=== PATIENT | female | born 1975 | race American Indian/Alaskan Native ===

== ENCOUNTER 2016-11-29 23:49 | Emergency (ER) | payer OTHER ==
[2016-11-30] MEDS ORDERED: NACL 0.9% 1000 ML 1,000 ML IV ONE (01:15)
[2016-11-30] MEDS ORDERED: MORPHINE IV ONE (01:15)
--- NOTE | 2016-11-30 01:35 | Emergency Department Report ---
HPI - General Chief Complaint: Dizziness Time Seen by Provider: 11/30/16 00:59 - HPI HPI: 41-year-old -[place] female presents to the emergency department from home with complaint of a headache that has been going on since 6 PM this evening. It is bitemporal and behind the eyes. She says it is 10 out of 10 in intensity and a throbbing sensation. She equates it to a migraine but does not have any history of migraines or recurrent headaches. She denies any tobacco abuse, illicit drug use or alcohol abuse. She tried some Aleve for her discomfort without any relief. She has [employer] insurance but cannot remember the name of her primary care doctor. No recent travel or sick contacts at home. The headache is associated with some dizziness as if she is going to pass out and some intermittent blurry vision. She denies any numbness, slurred speech, chest pain, shortness of breath, fever, nausea or vomiting. No recent travel or sick contacts at home. She is concerned as she has a father or grandfather who passed from a ruptured brain aneurysm. ED Past Medical Hx - Past Medical History Previous Medical History?: No - Surgical History Past Surgical History?: Yes Additional Surgical History: c-sect - Social History Smoking Status: Never Smoker Substance Use Type: None - Medications Home Medications: Home Medications Medication Instructions Recorded Confirmed Last Taken Type No Known Home Medications [No 11/30/16 11/30/16 Unknown History Reported Home Medications] ED Review of Systems ROS: Stated complaint: ELEVATED BLOOD PRESSURE Other details as noted in HPI Comment: All other systems reviewed and negative Constitutional: denies: chills, fever Eyes: denies: eye pain, eye discharge ENT: denies: ear pain, throat pain Respiratory: denies: cough, shortness of breath, wheezing Cardiovascular: denies: chest pain, palpitations Gastrointestinal: denies: abdominal pain, nausea, diarrhea Genitourinary: denies: urgency, dysuria, discharge Musculoskeletal: denies: back pain, joint swelling, arthralgia Skin: denies: rash, lesions Neurological: headache, other (dizziness). denies: weakness, numbness, paresthesias Physical Exam - Physical Exam Vital Signs: Vital Signs 11/29/16 11/29/16 23:53 23:58 Temperature 98.2 F 98.2 F Pulse Rate 98 H 92 H Respiratory 20 18 Rate Blood Pressure 139/82 Blood Pressure 139/82 [Right] O2 Sat by Pulse 100 100 Oximetry Physical Exam: GENERAL: The patient is well-developed well-nourished. HEENT: Normocephalic. Atraumatic. Extraocular motions are intact. Patient has moist mucous membranes. Pupils equal reactive to light bilaterally. No nystagmus. NECK: Supple. Trach is midline. CHEST/LUNGS: Clear to auscultation. There is no respiratory distress noted. HEART/CARDIOVASCULAR: Regular. There is no tachycardia. There is no gallop rub or murmur. ABDOMEN: Abdomen is soft, nontender. Patient has normal bowel sounds. There is no abdominal distention. SKIN: There is no rash. There is no edema. There is no diaphoresis. NEURO: The patient is awake, alert, and oriented. The patient is cooperative. The patient has no focal neurologic deficits. The patient has normal speech. Cranial nerves II through XII grossly intact. MUSCULOSKELETAL: There is no tenderness or deformity. There is no limitation range of motion. There is no evidence of acute injury. Muscle strength 5 out of 5 for upper and lower extremity bilaterally. ED Course Vital Signs 11/29/16 11/29/16 23:53 23:58 Temperature 98.2 F 98.2 F Pulse Rate 98 H 92 H Respiratory 20 18 Rate Blood Pressure 139/82 Blood Pressure 139/82 [Right] O2 Sat by Pulse 100 100 Oximetry - Reevaluation(s) Reevaluation #1: Patient's history of her father having a brain aneurysm that ruptured and the patient's current complaint of severe headache, my intent was to do a CT scan of the brain with IV contrast. However the patient says that she "is allergic to a lot of things, and that stuff kills people (contrast)" and has refused IV contrast. We also mentioned that she may need a lumbar puncture but patient has also refused this procedure. 11/30/16 03:18 - Consultations Consultation #1: I spoke with Dr. Rogers at the [facility] transfer hotline and the patient has been accepted for transfer to the [facility]. They will call back for a bed number and will send for transportation. 11/30/16 04:25 ED Medical Decision Making - Lab Data Result diagrams: 11/30/16 01:20 11/30/16 01:20 - Radiology Data Radiology results: report reviewed CT of the head does not show any acute process including no hemorrhage, mass, shift, diffuse edema or skull fracture. - Medical Decision Making 41-year-old female presents the emergency department with a significant bitemporal and frontal headache as well as some dizziness and generalized weakness and complaints of some intermittent blurred vision. Patient's labs show significant anemia with a hemoglobin of 6.1 and hematocrit of 22. With this lab finding the patient is most likely having some symptomatic anemia. However the patient has a history of her father having a brain aneurysm and rupture and with the patient having a significant headache, a CT of head without contrast was done that did not show any bleed, shift, mass or any acute process. The intent was to do a CT with IV contrast due to the history of aneurysm but the patient refused as she is concerned about IV contrast. I also requested to do a lumbar puncture but the patient refused this procedure as well. The rest of the the patient's labs are unremarkable. Patient was ordered 2 units of packed red blood cells. Patient had a type and screen sent and we are currently waiting for transfusion. Patient has [facility] insurance so I spoke with Dr. Rogers in the patient's presentation and ED course and the patient has been accepted for transfer to [facility] to be seen by [facility]. All of the labs, imaging and plan have been discussed with the patient and she understands and agrees. - Differential Diagnosis subarachnoid hemorrhage, migraine headache, iron deficiency anemia, symptom Critical Care Time: No Critical care attestation.: If time is entered above; I have spent that time in minutes in the direct care of this critically ill patient, excluding procedure time. ED Disposition Clinical Impression: Symptomatic anemia, Microcytic anemia, Family history of brain aneurysm Headache Qualifiers: Headache type: unspecified Headache chronicity pattern: acute headache Intractability: intractable Qualified Code(s): R51 - Headache Disposition: DC/TX ANOTHER TYPE HEALTHCARE Is pt being admited?: No Condition: Stable Referrals: PRIMARY CAREMD [Primary Care Provider] - 3-5 Days Time of Disposition: 04:28
[2016-11-30 01:43] LABS: Bacteria,Urine 1+ /HPF (Negative); Bilirubin,Urine NEG (Negative); Blood,Urine SM (Negative); Ketones,Urine NEG (Negative); Leukocyte Esterase,Urine NEG (Negative); Nitrite,Urine NEG (Negative); Protein,Urine <15 mg/dL mg/dL (Negative); Urobilinogen,Urine < 2.0 mg/dL (<2.0)
[2016-11-30 01:52] LABS: Hematocrit 22.2 % (30.3-42.9); Hemoglobin 6.1 gm/dl (10.1-14.3); Mean Corpuscular HGB Conc 28 % (30-34); Mean Corpuscular Hemoglobin 16 pg (28-32); Mean Corpuscular Volume 58 fl (79-97); Platelet Count 375 K/mm3 (140-440); Red Blood Count 3.85 M/mm3 (3.65-5.03); Red Cell Distribution Width 22.7 % (13.2-15.2); White Blood Count 4.7 K/mm3 (4.5-11.0)
[2016-11-30 02:03] LABS: Anion Gap 18 mmol/L; Blood Urea Nitrogen 8 mg/dL (7-17); Carbon Dioxide 23 mmol/L (22-30); Chloride 103.3 mmol/L (98-107); Glucose 99 mg/dL (65-100); Potassium 3.9 mmol/L (3.6-5.0); Sodium 140 mmol/L (137-145)
[2016-11-30] MEDS ORDERED: NACL 0.9% 500 ML 500 ML IV ONE (02:09)
[2016-11-30] MEDS ORDERED: ZOFRAN IV ONE (03:00)
[2016-11-30] MEDS ORDERED: ZOFRAN ONE (03:16)
--- NOTE | 2016-11-30 03:30 | Cat Scan Report ---
FINAL REPORT PROCEDURE: CT HEAD/BRAIN WO CON TECHNIQUE: Computerized tomography of the head was performed without contrast material. HISTORY: Headache COMPARISON: No prior studies are available for comparison. FINDINGS: Skull and scalp: Normal. Paranasal sinuses: Normal. Ventricles and subarachnoid spaces: Normal. Cerebrum: No evidence of hemorrhage, acute infarction or mass . Cerebellum and brainstem: No evidence of hemorrhage, acute infarction or mass. Vasculature: Normal. Comments: None. IMPRESSION: Normal Examination
[2016-11-30 07:09] VITALS: BP 102/60
== END 2016-11-30 07:10 | disposition other institution (70) ==
LOC: ED 23:49
DX: R51 Headache (principal); R42 Dizziness and giddiness; H53.8 Other visual disturbances; D50.9 Iron deficiency anemia, unspecified; Z88.0 Allergy status to penicillin; Z88.1 Allergy status to other antibiotic agents; Z88.6 Allergy status to analgesic agent; Z91.040 Latex allergy status; Z98.890 Other specified postprocedural states
CPT/HCPCS: 36415; 70450; 80048; 81001; 81025; 84443; 85025; 86850; 86900; 86901; 86920; 96361; 96374; 96375; 99285; J2270; J2405; J7030; J7040; P9016